=== PATIENT | male | born 1960 | race Caucasian/White ===

== ENCOUNTER 2017-10-13 14:33 | Emergency (ER) | payer BC ==
[~2017-10-13] VITALS: Ht 180.3 cm; Wt 108.9 kg
[~2017-10-13 14:33] MED LIST: ASPIR 8181 MG PO; ATORVASTATIN CA20 MG PO; FARXIGA PO; GLIMEPIRIDE2 MG PO; LANTUS 3ML100 UNITS/ SC; LISINOPRIL-HCT1 EAC1 PO; METFORMIN HCL500 MG PO
--- OUTSIDE RECORDS SUMMARY | 2017-10-13 14:35 | XMS REPORT | Clinical Summary ---
Author Author [facility] Address Unknown Phone Unavailable Care Team Providers Care Swager Operator Name Role Phone Marco Mott MD PCP Allergies Not on File Current Medications Not on file Active Problems Not on file Encounters Date Type Specialty Care Team Description 06/28/2017 Transcribe Physical Therapy Moses Choi MD Laceration of tendon of Orders left rotator cuff, subsequent encounter (Primary Dx) 05/16/2017 Transcribe Physical Therapy Moses Choi MD Laceration of muscle(s) Orders and tendon(s) of the rotator cuff of left shoulder, subsequent encounter (Primary Dx) 04/13/2017 Transcribe Physical Therapy Moses Choi MD Laceration of tendon of Orders left rotator cuff, subsequent encounter (Primary Dx) after 10/12/2016 Social History Tobacco Use Types Packs/Day Years Used Date Never Assessed Sex Assigned at Date Recorded Not on file Last Filed Vital Signs Not on file Plan of Treatment Health Maintenance Due Date Last Done Comments COLONOSCOPY 2009 INFLUENZA VACCINE 01/25/2018 Results Not on fileafter 10/12/2016 Insurance Payer Benefit Subscriber ID Type Phone Address Plan / Group BCBS BCBS xxxxxxxxxxxx PPO CHOICE PPO/[employer] PPO
[2017-10-13] MEDS ORDERED: CEFAZOLIN SOD 1 GM VIAL IM STA (14:41)
[2017-10-13] MEDS ORDERED: TETANUS/DIPHTHERIA TOX ADULT 0.5 ML SYR IM ONE (14:45)
--- NOTE | 2017-10-13 15:10 | Diagnostic Imaging Report ---
PROCEDURE:X-RAY RIGHT FINGER COMPARISON:None. INDICATIONS:RIGHT THUMB PAIN, TRAUMA FINDINGS: BONES:Cortical disruption in the lateral aspect of the distal tuft with presence of 1-2 mm bony fragments. Other bony structures are intact. Osteophytosis and mild joint space narrowing in the first finger carpometacarpal joint. SOFT TISSUES:Negative. OTHER:Negative. CONCLUSION: Findings in the lateral aspect of the distal tuft may represent fracture in the setting of trauma. Eugene Christie M.D. Dictated by: Eugene Christie M.D. on 10/13/2017 at 15:11 Electronically approved by: Eugene Christie M.D. on 10/13/2017 at 15:11
[2017-10-13 16:19] VITALS: BP 143/98
[2017-10-13] MEDS ORDERED: BACITRACIN ZINC 0.9GM TP ONE (16:30)
== END 2017-10-13 16:46 | disposition home or self-care (01) ==
LOC: ER 14:33
PROC: 2W3GX1Z Immobilization of Right Thumb using Splint (ICD-10-PCS; principal; 2017-10-13)
DX: S61.131A Puncture wound without foreign body of right thumb with damage to nail, initial encounter (principal); W29.8XXA Contact with other powered hand tools and household machinery, initial encounter; Y92.008 Other place in unspecified non-institutional (private) residence as the place of occurrence of the external cause
CPT/HCPCS: 29130; 73140; 90471; 90714; 99283; J0690